=== PATIENT | male | born 1970 | race Caucasian/White ===

== ENCOUNTER 2016-12-28 06:05 | Emergency (ER) | payer OTHER ==
--- NOTE | 2016-12-28 07:45 | ED NURSING NOTES ---
Clinical Report - Nurses [facility] [place] [address] 12/28/2016 6:08 Patient: TELLO FIERRO TRIAGE Triage time 06:05 Dec 28 2016. Acuity: LEVEL 2. Chief Complaint: CHEST PAIN. SEPSIS SCREEN: Sepsis Screen: negative. Negative (no infection suspected/documented). GIA COMA SCORE: [place] Coma Scale: 15- eyes open spontaneously (4); best verbal response- oriented x 4 (5); best motor response- obeys commands (6). --06:16 Antonia Mccauley 06:10 12/28/16. BP: 121/85. HR: 80. RR: 16. O2 saturation: 96% on room air. Temp: 98.6 F (oral). Pain level now: 04/29. --06:16 Antonia Mccauley. Weight: 68 kg stated. Height/Length: 64 inches Per Patient. BMI: 25.8. --06:13 Antonia Mccauley. Medications Premadone. --06:12 Antonia Mccauley. Medication/allergy information source: the patient. --06:16 Antonia Mccauley. Allergies No Known Drug Allergy. --06:12 Antonia Mccauley. History Arrived by EMS. Historian: patient. Unaccompanied. Primary physician ([facility]). ( Patient reports chest pain that he described as sharp that began this morning around 0530. He reports no cardiac history or respiratory illness. He denies SOB or diaphoresis. He states it hurts to breath and talk.). No difficulty breathing, sweating episodes, nausea or vomiting. 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 See report. Oxygen administered by nasal cannula. Pre-hospital 12-lead EKG performed en route. EKG consistent with normal tracing. BP: 142 / 82. HR: 80. RR: 16. O2 saturation: 97 % room air. ( ASA given). PAST MEDICAL HX: Immunizations: up-to-date. SOCIAL HX: Heavy tobacco smoker (cigarette)- 1 pack per day. Heavy alcohol use; consumes six beers a day. No drug use. No infectious disease exposure. ABUSE ASSESSMENT: No report of abuse. SELF HARM ASSESSMENT: A self harm assessment was performed. The patient answered "no" to the question "Have you recently felt down, depressed, or hopeless?", "Have you noticed less interest or pleasure in doing things?", "Do you have thoughts of harming or killing yourself?", "Are you here because you tried to hurt yourself?", "Have you ever tried to hurt yourself before today?", "Have you recently had thoughts about harming or killing others?" and "Do you have any dangerous items in your possession?". FALL RISK ASSESSMENT: Fall risk assessment completed. No fall risk identified. NUTRITIONAL RISK ASSESSMENT: The nutritional risk assessment revealed no deficiencies. FUNCTIONAL ASSESSMENT: Functional assessment: no impairments noted. LEARNING NEEDS ASSESSMENT: The learning needs assessment revealed no barriers. SKIN INTEGRITY ASSESSMENT: Skin integrity risk assessment completed. No skin integrity risk identified. --06:16 Antonia Mccauley. PROBLEMS: Alcoholism. Micorfocal neuropathy . --06:12 Antonia Mccauley. ADDITIONAL SURGERIES: no known surgeries. Interventions ID band on patient. To treatment room. --06:16 Antonia Mccauley. 06:04 12/28/2016 Site #1 started prior to arrival by EMS via IV in the right forearm with an 20g angiocath. Saline lock flushed with 10 mL saline. --06:14 Antonia Mccauley. PHYSICAL ASSESSMENT 06:17 12/28/16. To room via stretcher. Patient gowned. GENERAL / NEURO / PSYCH: Alert. Oriented X 4. Appears in no acute distress. HEENT: Mucous membranes are pink. RESPIRATORY: Respirations not labored. Chest pain reproducible. Chest wall tenderness. CVS: Normal sinus rhythm noted. Pulses within normal limits. GI / : Abdomen soft and nontender. EXTREMITIES: No lower extremity edema. SKIN: Skin is warm and dry. --06:17 Antonia Mccauley. NURSING PROGRESS NOTES The initial plan of care for this patient has been created This plan of care was discussed with the patient. Oxygen administered by nasal cannula at 2 liters. Pulse oximeter and NIBP monitor placed on patient. Patient gowned. Reassurance given to the patient. Two patient identifiers checked. Call light placed in reach. Side rails up x 1. Bed placed in lowest position. Brakes of bed on. Patient ready for evaluation- chart flagged and ED physician notified. --06:17 Antonia Mccauley Patient ID band checked for patient name and birthdate: patient confirmed. Blood samples drawn from the left antecubital space with 23g butterfly by tech ; labeled in presence of the patient and sent to lab: rainbow set: cardiac enzymes (1st set). --06:18 Antonia Mccauley ( Portable xray at bedside). --06:28 Antonia Mccauley EKG time: (06:12 Dec 28 2016). EKG was performed by a tech and shown to the ED physician. --06:29 Antonia Mccauley 06:25. Checked patient name and birthdate. Blood samples drawn from the left antecubital space by tech per protocol ; labeled in presence of the patient and sent to lab: rainbow set. --06:30 McQuoid, Nilda, ER Tech1 The patient reports no complaints and he is resting quietly. --06:52 Antonia Mccauley 06:52 12/28/16. BP: 128/75. HR: 73. RR: 18. O2 saturation: 98% on room air. Pain level now: 04/29. --06:52 Antonia Mccauley Care transferred and report given (Kenia Tinoco RN). --07:15 Antonia Mccauley. DISPOSITION / DISCHARGE Condition at departure: improved. No learning barriers present. Discharge instructions provided and reviewed with the patient. The patient was discharged home and accompanied by family. He left the Emergency Department ambulatory and via private vehicle. Family member driving. --07:57 Kenia Ceron R.N. 07:56 12/28/16. BP: 128/85. HR: 80. RR: 16. O2 saturation: 97%. Pain level now 12/28. --07:57 Kenia Ceron R.N. Locked/Released at 12/28/2016 9:05 by Kenia Ceron R.N.
--- NOTE | 2016-12-28 07:45 | ED NURSING NOTES ---
Clinical Report - Nurses [facility] [place] [address] 12/28/2016 6:08 Patient: TELLO FIERRO TRIAGE Triage time 06:05 Dec 28 2016. Acuity: LEVEL 2. Chief Complaint: CHEST PAIN. SEPSIS SCREEN: Sepsis Screen: negative. Negative (no infection suspected/documented). GIA COMA SCORE: [place] Coma Scale: 15- eyes open spontaneously (4); best verbal response- oriented x 4 (5); best motor response- obeys commands (6). --06:16 Antonia Mccauley 06:10 12/28/16. BP: 121/85. HR: 80. RR: 16. O2 saturation: 96% on room air. Temp: 98.6 F (oral). Pain level now: 04/29. --06:16 Antonia Mccauley. Weight: 68 kg stated. Height/Length: 64 inches Per Patient. BMI: 25.8. --06:13 Antonia Mccauley. Medications Premadone. --06:12 Antonia Mccauley. Medication/allergy information source: the patient. --06:16 Antonia Mccauley. Allergies No Known Drug Allergy. --06:12 Antonia Mccauley. History Arrived by EMS. Historian: patient. Unaccompanied. Primary physician ([facility]). ( Patient reports chest pain that he described as sharp that began this morning around 0530. He reports no cardiac history or respiratory illness. He denies SOB or diaphoresis. He states it hurts to breath and talk.). No difficulty breathing, sweating episodes, nausea or vomiting. 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 EMS treatment GLUE JOINTER OPERATOR verbally communicated and report reviewed. See report. Oxygen administered by nasal cannula. Pre-hospital 12-lead EKG performed en route. EKG consistent with normal tracing. BP: 142 / 82. HR: 80. RR: 16. O2 saturation: 97 % room air. ( ASA given). PAST MEDICAL HX: Immunizations: up-to-date. SOCIAL HX: Heavy tobacco smoker (cigarette)- 1 pack per day. Heavy alcohol use; consumes six beers a day. No drug use. No infectious disease exposure. ABUSE ASSESSMENT: No report of abuse. SELF HARM ASSESSMENT: A self harm assessment was performed. The patient answered "no" to the question "Have you recently felt down, depressed, or hopeless?", "Have you noticed less interest or pleasure in doing things?", "Do you have thoughts of harming or killing yourself?", "Are you here because you tried to hurt yourself?", "Have you ever tried to hurt yourself before today?", "Have you recently had thoughts about harming or killing others?" and "Do you have any dangerous items in your possession?". FALL RISK ASSESSMENT: Fall risk assessment completed. No fall risk identified. NUTRITIONAL RISK ASSESSMENT: The nutritional risk assessment revealed no deficiencies. FUNCTIONAL ASSESSMENT: Functional assessment: no impairments noted. LEARNING NEEDS ASSESSMENT: The learning needs assessment revealed no barriers. SKIN INTEGRITY ASSESSMENT: Skin integrity risk assessment completed. No skin integrity risk identified. --06:16 Antonia Mccauley. PROBLEMS: Alcoholism. Micorfocal neuropathy . --06:12 Antonia Mccauley. ADDITIONAL SURGERIES: no known surgeries. Interventions ID band on patient. To treatment room. --06:16 Antonia Mccauley. 06:04 12/28/2016 Site #1 started prior to arrival by EMS via IV in the right forearm with an 20g angiocath. Saline lock flushed with 10 mL saline. --06:14 Antonia Mccauley. PHYSICAL ASSESSMENT 06:17 12/28/16. To room via stretcher. Patient gowned. GENERAL / NEURO / PSYCH: Alert. Oriented X 4. Appears in no acute distress. HEENT: Mucous membranes are pink. RESPIRATORY: Respirations not labored. Chest pain reproducible. Chest wall tenderness. CVS: Normal sinus rhythm noted. Pulses within normal limits. GI / : Abdomen soft and nontender. EXTREMITIES: No lower extremity edema. SKIN: Skin is warm and dry. --06:17 Antonia Mccauley. NURSING PROGRESS NOTES The initial plan of care for this patient has been created This plan of care was discussed with the patient. Oxygen administered by nasal cannula at 2 liters. Pulse oximeter and NIBP monitor placed on patient. Patient gowned. Reassurance given to the patient. Two patient identifiers checked. Call light placed in reach. Side rails up x 1. Bed placed in lowest position. Brakes of bed on. Patient ready for evaluation- chart flagged and ED physician notified. --06:17 Antonia Mccauley Patient ID band checked for patient name and birthdate: patient confirmed. Blood samples drawn from the left antecubital space with 23g butterfly by tech ; labeled in presence of the patient and sent to lab: rainbow set: cardiac enzymes (1st set). --06:18 Antonia Mccauley ( Portable xray at bedside). --06:28 Antonia Mccauley EKG time: (06:12 Dec 28 2016). EKG was performed by a tech and shown to the ED physician. --06:29 Antonia Mccauley 06:25. Checked patient name and birthdate. Blood samples drawn from the left antecubital space by tech per protocol ; labeled in presence of the patient and sent to lab: rainbow set. --06:30 McQuoid, Nilda, ER Tech1 The patient reports no complaints and he is resting quietly. --06:52 Antonia Mccauley 06:52 12/28/16. BP: 128/75. HR: 73. RR: 18. O2 saturation: 98% on room air. Pain level now: 04/29. --06:52 Antonia Mccauley Care transferred and report given (Kenia Tinoco RN). --07:15 Antonia Mccauley. DISPOSITION / DISCHARGE Condition at departure: improved. No learning barriers present. Discharge instructions provided and reviewed with the patient. The patient was discharged home and accompanied by family. He left the Emergency Department ambulatory and via private vehicle. Family member driving. --07:57 Kenia Ceron R.N. 07:56 12/28/16. BP: 128/85. HR: 80. RR: 16. O2 saturation: 97%. Pain level now 12/28. --07:57 Kenia Ceron R.N. Locked/Released at 12/28/2016 9:05 by Kenia Ceron R.N.
--- NOTE | 2016-12-28 07:45 | ED CLINICAL REPORT ---
Clinical Report - Physicians/Mid Levels [facility] [address] [place] [address] 12/28/2016 6:08 Patient: TELLO FIERRO Time Seen: 06:11; initial patient contact. Arrived- By ambulance. Historian- patient. HISTORY OF PRESENT ILLNESS Chief Complaint: CHEST PAIN. This started today and is still present. It was abrupt in onset. Onset during rest. At its maximum, severity described as moderate. When seen in the E.D., severity described as moderate. Modifying factors- worsened by cough and deep breaths. Not relieved by anything. It is described as sharp and it is described as located in the central chest area. No radiation. No nausea, vomiting, difficulty breathing or diaphoresis. Similar symptoms previously: None. Recent medical care: Not recently seen/assessed. REVIEW OF SYSTEMS No fever, chills, pedal edema or calf pain. He has had a cough. All systems otherwise negative, except as recorded above. PAST HISTORY Alcoholism. Microfocal neuropathy . Surgeries: No history of previous surgery. SOCIAL HISTORY Current every day smoker. Heavy alcohol use. No drug use. ADDITIONAL NOTES The nursing notes have been reviewed. PHYSICAL EXAM Vital Signs: 12/28/2016 06:10 BP: 121/85. HR: 80. RR: 16. O2 saturation: 96%. Temp: 98.6 F. Pain level now: 8/10. Have been reviewed as normal. Appearance: Alert. Oriented X3. No acute distress. Eyes: Eyes normal inspection. ENT: Pharynx normal. CVS: Normal heart rate and rhythm. Heart sounds normal. Respiratory: No respiratory distress. Chest pain reproducible with palpation of the costochondral junction and with deep breathing. Moderate left upper and mid- costochondral tenderness. The tenderness is well-localized and reproduces the patient's subjective complaint. Breath sounds normal. Abdomen: Soft and nontender. Bowel sounds normal. No organomegaly. No mass. Skin: Skin warm and dry. Normal skin color. Extremities: No calf tenderness. No lower extremity edema. Neuro: Oriented X 3. LABS, X-RAYS, AND EKG EKG: EKG time: (611). No acute process. No acute ischemia. Normal EKG. Normal sinus rhythm. Rate: 76. Normal P waves. Normal JAMEY. Normal QRS complex. Normal axis. Normal ST and T waves, QT and QTc. Prior EKG unavailable. The study has been interpreted contemporaneously by me. The study has been independently viewed by me. The EKG appears to be a good tracing. I agree with and confirm the computer reading of the EKG. Interpretation time: 0612. Chest X-ray: No acute disease. Normal lung markings present. No infiltrate. Views: AP. Technique: good. The X-rays were independently viewed by me and interpreted contemporaneously by me. Prior films were not available for comparison. Interpretation time: 06:37. Laboratory Tests: CBC w Diff: (GIBSON: 12/28/2016 06:28) ( [facility]28[facility] 06:44) Final results Test Result Flag Units (Reference) WHITE BLOOD COUNT 3.4 L K/uL (4.5-11.5) RED BLOOD COUNT 4.53 M/uL (4.50-5.90) HEMOGLOBIN 15.4 gm/dL (13.5-17.5) HEMATOCRIT 45.3 % (41.0-53.0) MEAN CELL VOLUME 100 fL (80-100) MEAN CORPUSCULAR HGB 34 pg (26-34) MEAN CORPUSCULAR HGB CONC 34 g/dL (31-37) RED CELL DISTRIBUTION WIDTH 13.1 % (11.6-14.8) PLATELET COUNT 209 K/uL (150-400) NEUTROPHIL % 57.6 % (50-75) LYMPH % 29.9 % (25-40) MONO % 11.1 % (3-14) EOSINOPHIL % 0.8 % (0-4) BASOPHIL % 0.6 % (0-2) Ethyl Alcohol: (GIBSON: 12/28/2016 06:28) ( MsgRcvd 12/28/2016 07:10) Final results Test Result Flag Units (Reference) ETHYL ALCOHOL 341 H mg/dL (3-10) CHEM 13 PANEL: (GIBSON: 12/28/2016 06:28) ( MsgRcvd 12/28/2016 07:22) Final results Test Result Flag Units (Reference) GLUCOSE 82 mg/dL (70-110) BUN 3 L mg/dL (7-18) CREATININE 0.6 mg/dL (0.6-1.3) Estimated GFR >60 mL/min Estimated GFR- >60 mL/min Note: Persistent reduction over 3 months in eGFR<60 mL/min/1.73 m2 defines CKD. Patients with eGFR values>=60 mL/min/1.73 m2 may also have CKD if evidence ofpersistent proteinuria. Additional information may be foundat www.kidney.org. SODIUM 129 L mmol/L (136-145) POTASSIUM 3.9 mmol/L (3.5-5.1) CHLORIDE 95 L mmol/L (98-107) CARBON DIOXIDE 24 mmol/L (21-32) CALCIUM 8.4 L mg/dL (8.5-10.1) TOTAL PROTEIN 7.8 g/dL (6.4-8.2) ALBUMIN 3.5 g/dL (3.3-5.0) BILIRUBIN, TOTAL 0.3 mg/dL (0.0-1.0) ALKALINE PHOSPHATASE 51 U/L (46-116) AST (SGOT) 204 H U/L (15-37) ALT (SGPT) 163 H U/L (12-78) CPK 321 H U/L (24-260) MAGNESIUM 1.7 L mg/dL (1.8-2.4) CK-MB 10.2 H ng/mL (0.5-3.2) %CKMB 3.2 % (0.0-4.0) TROPONIN I <0.05 L ng/mL (0.00-1.5) TROPONIN REFERENCE RANGE:<0.1 NEGATIVE0.1-1.5 INDETERMINANT>1.5 POSITIVE . PROGRESS AND PROCEDURES Disposition: Discharged home in good condition. Condition: good. CLINICAL IMPRESSION Costochondritis .12 lead EKG performed. Abnormal liver function test: AST/SGOT and ALT/SGPT. Uncomplicated alcohol intoxication with alcohol dependence. INSTRUCTIONS No alcohol. Seek medical help to quit drinking. Your Current Medications: CONTINUE TAKING THE FOLLOWING MEDICATIONS: Premadone*. Prescription Medications: Diclofenac 50 mg tablets: take 1 tablet orally every 8 hours as needed for pain or stiffness. Dispense thirty (30). No refill. Follow-up: Follow up with your doctor in about two days. Call for an appointment. Screening today revealed the patient's blood pressure to be in the pre-hypertensive range. The patient should follow up with a primary care provider for blood pressure management. (Electronically signed by Michael Palumbo Dr. 12/28/2016 8:34)
--- NOTE | 2016-12-28 07:45 | ED ORDER SUMMARY ---
..... Patient: TELLO FIERRO OrderSheet [facility] VisitID: [id number] [address] [place] [address] 46y, M Registration Date/Time: 12/28/2016 ORDER SHEET Weight: 68.0 kg (stated) Allergies: No Known Drug Allergy GENERAL ORDERS: Chest 1V Urgent (06:12/28/2016 Lisa Soria) (Ack 6:28 SRedmond) (6:34 RFay) Cardiac Panel Stat (06:12/28/2016 Lisa Soria) (Ack 6:28 SRedmond) (6:49 JDeElena R.N.) Urine Drug Screen Urgent (06:12/28/2016 Lisa Soria) (Ack 6:28 SRedmond) (7:52 DMaziarka R.N.) UA-Culture if indicated Urgent (06:12/28/2016 Lisa Soria) (Ack 6:28 SRedmond) (7:52 DMaziarka R.N.) (Cancelled: Treatment not Indicated7:53 DMaziarka R.N.) Ethyl Alcohol Urgent (06:12/28/2016 Lisa Soria) (Ack 6:28 SRedmond) (6:49 JDeElena R.N.) MEDICATION ORDERS: IV FLUIDS: ORDER SHEET NOTES: [Electronically signed by Michael Palumbo Dr. (08:34 12/28/2016)] [Electronically signed by Kenia Ceron R.N. (09:05 12/28/2016)] [Electronically locked/signed by Kenia Ceron R.N. (09:05 12/28/2016)]
--- NOTE | 2016-12-28 07:45 | ED ORDER SUMMARY ---
..... Patient: TELLO FIERRO OrderSheet [facility] VisitID: [id number] [address] [place] [address] 46y, M Registration Date/Time: 12/28/2016 ORDER SHEET Weight: 68.0 kg (stated) Allergies: No Known Drug Allergy GENERAL ORDERS: Chest 1V Urgent (06:12/28/2016 Lisa Soria) (Ack 6:28 SRedmond) (6:34 RFay) Cardiac Panel Stat (06:12/28/2016 Lisa Soria) (Ack 6:28 SRedmond) (6:49 JDeElena R.N.) Urine Drug Screen Urgent (06:12/28/2016 Lisa Soria) (Ack 6:28 SRedmond) (7:52 DMaziarka R.N.) UA-Culture if indicated Urgent (06:12/28/2016 Lisa Soria) (Ack 6:28 SRedmond) (7:52 DMaziarka R.N.) (Cancelled: Treatment not Indicated7:53 DMaziarka R.N.) Ethyl Alcohol Urgent (06:12/28/2016 Lisa Soria) (Ack 6:28 SRedmond) (6:49 JDeElena R.N.) MEDICATION ORDERS: IV FLUIDS: ORDER SHEET NOTES: [Electronically signed by Michael Palumbo Dr. (08:34 12/28/2016)] [Electronically signed by Kenia Ceron R.N. (09:05 12/28/2016)] [Electronically locked/signed by Kenia Ceron R.N. (09:05 12/28/2016)]
--- NOTE | 2016-12-28 08:03 | DIAGNOSTIC IMAGING REPORT ---
PROCEDURE: XR CHEST 1 VIEW INDICATION: CHEST PAIN TECHNIQUE: Portable AP view (). COMPARISON: None. FINDINGS: Lungs are clear. Heart and mediastinum are normal. Thorax is normal. IMPRESSION: 1. Negative chest.
--- NOTE | 2016-12-28 09:05 | ED MED RECONCILIATION SUMMARY ---
Patient: TELLO FIERRO Medication Reconciliation Report [facility] VisitID: [id number] [address] [place] [address] 46y, M Registration Date/Time: 12/28/2016 Weight: 68.0 kg Height/Length: 64 in. BMI: 25.8 ALLERGIES: No Known Drug Allergy The patient's Home Medications are listed below: CONTINUE TAKING THE FOLLOWING MEDICATIONS: Premadone The source(s) of the original Home Medication information: patient The following Medications were given to the patient in the Emergency Department: None. The following Medications were prescribed to the patient: Diclofenac 50 mg tablets: take 1 tablet orally every 8 hours as needed for pain or stiffness. Dispense thirty (30). No refill. -- Michael Palumbo Dr.
--- NOTE | 2016-12-28 09:05 | ED MAR SUMMARY ---
..... Medication Administration Record [facility] [address] [place], [place] [id number] Patient: TELLO FIERRO Visit ID: [id number] 46y, M Weight: 68.0 kg Height/Length: 64 in BMI: 25.8 ALLERGIES: No Known Drug Allergy
--- NOTE | 2016-12-28 09:05 | ED MED RECONCILIATION SUMMARY ---
Patient: TELLO FIERRO Medication Reconciliation Report [facility] VisitID: [id number] [address] [place] [address] 46y, M Registration Date/Time: 12/28/2016 Weight: 68.0 kg Height/Length: 64 in. BMI: 25.8 ALLERGIES: No Known Drug Allergy The patient's Home Medications are listed below: CONTINUE TAKING THE FOLLOWING MEDICATIONS: Premadone The source(s) of the original Home Medication information: patient The following Medications were given to the patient in the Emergency Department: None. The following Medications were prescribed to the patient: Diclofenac 50 mg tablets: take 1 tablet orally every 8 hours as needed for pain or stiffness. Dispense thirty (30). No refill. -- Michael Palumbo Dr.
--- NOTE | 2016-12-28 09:05 | ED MAR SUMMARY ---
..... Medication Administration Record [facility] [address] [place] [id number] Patient: TELLO FIERRO Visit ID: [id number] 46y, M Weight: 68.0 kg Height/Length: 64 in BMI: 25.8 ALLERGIES: No Known Drug Allergy
--- NOTE | 2016-12-28 09:05 | ED DISCHARGE INSTRUCTIONS ---
Patient: TELLO FIERRO General Instructions [facility] VisitID: [id number] [address] [place] [address] 46y, M Registration Date/Time: 12/28/2016 Costochondritis .12 lead EKG performed. Abnormal liver function test: AST/SGOT and ALT/SGPT. Uncomplicated alcohol intoxication with alcohol dependence. INSTRUCTIONS No alcohol. Seek medical help to quit drinking. Your Current Medications: CONTINUE TAKING THE FOLLOWING MEDICATIONS: Premadone*. Prescription Medications: Diclofenac 50 mg tablets: take 1 tablet orally every 8 hours as needed for pain or stiffness. Dispense thirty (30). No refill. Follow-up: Follow up with your doctor in about two days. Call for an appointment. Screening today revealed the patient's blood pressure to be in the pre-hypertensive range. The patient should follow up with a primary care provider for blood pressure management. ADDITIONAL INFORMATION Chest Wall Pain: Costochondritis The chest pain that you have had today is caused by Costochondritis. This condition is due to an inflammation of the cartilage joining the ribs to the breastbone. It is not caused by heart or lung problems. Although the exact cause for costochondritis is not known, it often occurs during times of emotional stress. It can be painful, but it is not dangerous. It usually disappears within one to two weeks, but may recur. Rarely, a more serious condition may cause symptoms similar to costochondritis; therefore, watch for the warning signs listed below. Home Care: If you feel that emotional stress is a cause of your condition, try to identify sources of that stress. It may not be obvious! Learn ways to deal with the stress in your life such as regular exercise, muscle relaxation, meditation, or simply taking time out for yourself. For more information about this, consult your doctor or go to a local bookstore and review books and tapes available on the subject of stress reduction. You may use acetaminophen (Tylenol) or ibuprofen (Motrin, Advil) to control pain, unless another pain medicine was prescribed. [ NOTE: If you have liver disease or ever had a stomach ulcer, talk with your doctor before using these medicines.] The use of heat (hot wet compress or heating pad) with or without local analgesic creams (Deep Heat Rub, Manuel Chavez) will be helpful to reduce pain. Follow Up with your doctor as directed or sooner if you do not start to improve within the next two days. Get Prompt Medical Attention if any of the following occur: A change in the type of pain: if it feels different, becomes more severe, lasts longer, or spreads into your shoulder, arm, neck, jaw or back Shortness of breath or increased pain with breathing Weakness, dizziness, or fainting Cough with dark colored sputum (phlegm) or blood Abdominal pain Dark red or black stools Fever of 100.4F (38C) or higher, or as directed by your healthcare provider Cirrhosis Of The Liver The liver is located on the right side of your abdomen, just below the rib cage. The liver performs many essential functions including: Filters toxins from the blood Makes bile to aid digestion and absorption of vitamins from the GI tract Makes clotting factors that stop bleeding if you injure yourself Viral infections and toxins can cause permanent injury to the liver, called CIRRHOSIS. The most common cause of cirrhosis in the [place] is Hepatitis C and alcohol abuse. Other causes include Hepatitis B, medication side effects and others. The scarring that results from cirrhosis interferes with normal liver function and can cause many complications, including: Leakage of fluid from the blood vessels. This can cause pooling of fluid in the abdomen (ascites) or in the legs (edema). Inability of blood to form clots normally. This can lead to excess bleeding. Bleeding from blood vessels in the esophagus. This causes vomiting of blood or blood in the stool. Build-up of bile in the blood which causes a yellow color of the eyes and skin (jaundice). Build-up of toxins in the body which affect the brain and cause confusion. Treatment is aimed at taking care of the symptoms and preventing further liver damage. If your liver damage is from alcohol, quitting will slow the progress of the disease and may prevent further complications. If cirrhosis progresses and becomes life-threatening, liver transplant may be considered. If your liver damage is from Hepatitis B or C, treatments may be given to fight the virus. Home Care: Avoid medicines that can worsen liver damage such as acetaminophen (Tylenol). Your doctor will explain if any of the medicines you now take need to be changed. Talk to you doctor before taking mineral and vitamin supplements. Vitamin A, iron and copper can worsen liver damage. Severely limit alcohol use, or stop altogether. If you are alcoholic, seek professional help. Consider joining Alcoholics Anonymous for ongoing support. If you use IV drugs, you are at risk of Hepatitis B and C. Seek help to stop. The viruses that cause this kind of hepatitis are passed by blood or sexual contact with an infected person. It may even be possible to pass Hepatitis C by sharing straws to snort cocaine. Never share needles or other equipment. Follow Up with your doctor or as advised by our staff. Learn more about your disease and the availability of support groups for others with the same condition. Contact one of the following for more information: [place] [employer] www.liverfoundation.org 058-602-8738 [employer] www.hepfi.org Get Prompt Medical Attention if any of the following occur: Rapid weight gain with increased size of your abdomen or leg swelling Increasing jaundice (yellow color of skin or eyes) Excess bleeding from cuts or injuries Alcohol Intoxication Alcohol intoxication occurs when you drink alcohol faster than your liver can remove it from your system. Alcohol intoxication affects your judgment and coordination. Very high blood alcohol levels can cause coma, very slow breathing and even . If you drink alcohol every day, this may gradually cause permanent damage to your liver, brain, heart, pancreas and other organs. Alcohol use during may cause permanent damage to the growing baby. Home Care: Do not drink any more alcohol. DO NOT DRIVE until all effects of the alcohol have worn off. Get lots of rest over the next few days. Drink plenty of water and other non-alcoholic liquids. Try to eat regular meals. If you have been drinking heavily on a daily basis, you may go through alcohol withdrawl. This is also called the shakes or DTs. The usual symptoms last 3 to 4 days and may include nervousness, shakiness, nausea, sweating or sleeplessness. During this time, it is best that you stay with family or friends who can help and support you. You can also admit yourself to a residential detox program. If your symptoms are severe, contact your doctor for medicines to help. Follow Up: If alcohol is causing a problem in your life, these and other organizations can help you: Alcoholics Anonymous offers support through a self-help fellowship. There are no dues or fees. See the Yellow Pages and call for time and place of meetings. www.aa.org [employer] offers support to families of alcohol users. 961.593.3004 www.al-anon.org [employer] [place] [employer] 330-321-8193 www.ncadd.org There are also inpatient or residential alcohol detox programs. Check the Internet or phonebook Yellow Pages under Drug Abuse & Treatment Centers. Get Prompt Medical Attention if any of the following occur: there) You have been given the following additional information: Chest Wall Pain, Costochondritis Cirrhosis Alcohol Intoxication (Electronically signed by Michael Palumbo Dr. 12/28/2016 8:34)
== END 2016-12-28 08:01 | disposition home or self-care (01) ==
LOC: ED SRH 06:05
DX: M94.0 Chondrocostal junction syndrome [Tietze] (principal); R79.89 Other specified abnormal findings of blood chemistry; F10.220 Alcohol dependence with intoxication, uncomplicated; F17.210 Nicotine dependence, cigarettes, uncomplicated
CPT/HCPCS: 90074; 90100; 90616; 90617; 92010; 92610; 92720; 95059